=== PATIENT | female | born 1995 | race Caucasian/White ===

== ENCOUNTER 2017-05-22 19:10 | Emergency (ER) | payer OTHER ==
[2017-05-22 19:26] VITALS: BP 114/70; PULSE 97; TEMP 98.2; BMI 23.4
--- NOTE | 2017-05-22 19:27 | PDOC ---
Rapid Medical Evaluation Time Seen by Provider: 05/22/17 19:16 Medical Evaluation: Allergies Allergy/AdvReac Type Severity Reaction Status Date / Time No Known Allergies Allergy Verified 10/17/11 18:31 05/22/17 19:18 I have performed a brief in-person evaluation of this patient. The patient presents with a chief complaint of: heaviness in right occiput. Being treated for nasal infection. Had CTH at [facility] earlier today. Pertinent physical exam findings: NEURO: CN2-12 intact. (-)Nuchal rigidity. Steady gait. 5/5 strength. PULM: Lungs CTAB HEENT: No erythema or swelling to occiput I have ordered the following: UA, UPT The patient will proceed to the ED for further evaluation. Discharge Disposition - Diagnosis Headache - Referrals - Patient Instructions - Post Discharge Activity
[2017-05-22 20:30] LABS: HCG,QUALITATIVE URINE NEGATIVE
[2017-05-22 20:32] LABS: URINE APPEARANCE CLEAR; URINE BILIRUBIN NEGATIVE (NEGATIVE); URINE BLOOD 3+ (NEGATIVE); URINE COLOR STRAW; URINE GLUCOSE (UA) NEGATIVE (NEGATIVE); URINE KETONE NEGATIVE (NEGATIVE); URINE LEUK ESTERASE NEGATIVE (NEGATIVE); URINE NITRITE NEGATIVE (NEGATIVE); URINE PROTEIN NEGATIVE (NEGATIVE); URINE UROBILINOGEN NEGATIVE mg/dL (0.2-1.0)
== END 2017-05-22 21:11 | disposition left against medical advice (07) ==
LOC: JER 19:10
DX: R51 Headache (principal)
CPT/HCPCS: 81003; 81015; 84703; 99281-25